=== PATIENT | female | born 1980 | race African-American/Black ===

== ENCOUNTER 2025-01-01 23:16 | Emergency (ER) | payer OTHER ==
[~2025-01-01] VITALS: Ht 152.4 cm; Wt 88.0 kg
[2025-01-01 23:22] VITALS: O2SAT 100
[2025-01-02 00:21] VITALS: BP 114/60; PULSE 70; RESP 18; TEMP 36.7; O2SAT 100
[2025-01-02] MEDS ORDERED: LIDO-53 TP (19:15)
[2025-01-02] MEDS ORDERED: CYCL25PO15 MT (19:15)
== END 2025-01-02 02:29 | disposition left against medical advice (07) ==
LOC: ER 23:16
DX: M54.2 Cervicalgia (principal); Z53.21 Procedure and treatment not carried out due to patient leaving prior to being seen by health care provider

== ENCOUNTER 2025-01-02 17:33 | Emergency (ER) | payer OTHER ==
[~2025-01-02] VITALS: Ht 167.6 cm; Wt 95.0 kg
[2025-01-02 17:38] VITALS: O2SAT 100
[2025-01-02] MEDS: CYCLOBENZAPRINE 10MG TABLET PO ONE (18:38)
[2025-01-02] MEDS ORDERED: CYCL25PO15 MT (19:15)
[2025-01-02] MEDS ORDERED: LIDO-53 TP (19:15)
[2025-01-02 19:36] VITALS: BP 129/79; PULSE 69; RESP 14; TEMP 36.7; O2SAT 100
[2025-01-03] MEDS ORDERED: LIDOCAINE 5% PATCH TOP SCH (09:00)
== END 2025-01-02 19:36 | disposition home or self-care (01) ==
LOC: ER 17:33
DX: M54.2 Cervicalgia (principal); I10 Essential (primary) hypertension; E11.9 Type 2 diabetes mellitus without complications; Z88.0 Allergy status to penicillin
CPT/HCPCS: 99283

== ENCOUNTER 2025-01-05 10:56 | Emergency (ER) | payer OTHER ==
[~2025-01-05] VITALS: Ht 152.4 cm; Wt 86.1 kg
[~2025-01-05 10:56] MED LIST: CYCL25PO15 MT; LIDO-53 TP
[2025-01-05 11:03] VITALS: O2SAT 98
[2025-01-05] MEDS ORDERED: BACLOFEN 20MG TABLET PO ONE (15:45)
[2025-01-05] MEDS: LIDOCAINE 5% PATCH TOP STA (16:02)
[2025-01-05] MEDS: KETOROLAC 30MG/ML VIAL IM ONE (16:03)
[2025-01-05] MEDS: BACLOFEN 10MG TABLET PO SCH (16:03)
[2025-01-05] MEDS ORDERED: BACL-141 MT (18:20)
[2025-01-05] MEDS ORDERED: LIDO700A30 TP (18:20)
[2025-01-05] MEDS ORDERED: KETO10TA2 MT (18:20)
[2025-01-05 18:48] VITALS: BP 145/80; PULSE 62; RESP 18; TEMP 36.6; O2SAT 98
== END 2025-01-05 18:49 | disposition home or self-care (01) ==
LOC: ER 10:56
DX: M54.2 Cervicalgia (principal); E11.9 Type 2 diabetes mellitus without complications; I10 Essential (primary) hypertension; Z79.899 Other long term (current) drug therapy; Z98.890 Other specified postprocedural states; Z88.0 Allergy status to penicillin
CPT/HCPCS: 99283; 81025; 72040; 96372; J1885